=== PATIENT | male | born 1980 | race Caucasian/White ===

== ENCOUNTER 2017-02-01 13:48 | Emergency (ER) | payer OTHER ==
[~2017-02-01] VITALS: Ht 180.3 cm; Wt 96.0 kg
[~2017-02-01 13:48] MED LIST: IBUP800T23 PO
[2017-02-01 13:50] VITALS: BP 133/91; PULSE 79; RESP 16; TEMP 98; O2SAT 94
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
[2017-02-01] MEDS ORDERED: NAPR500 PO (14:31)
[2017-02-01] MEDS ORDERED: ROBA500T PO (14:31)
== END 2017-02-01 14:48 | disposition home or self-care (01) ==
LOC: PHEFT 13:48
DX: S16.1XXA Strain of muscle, fascia and tendon at neck level, initial encounter (principal); V43.62XA Car passenger injured in collision with other type car in traffic accident, initial encounter; Y93.9 Activity, unspecified; Y92.9 Unspecified place or not applicable; Y99.9 Unspecified external cause status
CPT/HCPCS: 99284

== ENCOUNTER 2017-04-19 13:15 | Emergency (ER) | payer OTHER ==
[~2017-04-19] VITALS: Ht 180.3 cm; Wt 95.6 kg
[~2017-04-19 13:15] MED LIST changes: -IBUP800T23 PO; +NAPR500 PO; +ROBA500T PO
[2017-04-19 13:19] VITALS: BP 127/77; PULSE 76; RESP 20; TEMP 97.4; O2SAT 97
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
== END 2017-04-19 13:45 | disposition left against medical advice (07) ==
LOC: PHEFT 13:15
DX: M25.531 Pain in right wrist (principal); Z88.0 Allergy status to penicillin
CPT/HCPCS: 99281